=== PATIENT | female | born 1980 | race Caucasian/White ===

== ENCOUNTER 2025-06-04 11:44 | Emergency (ER) | payer OTHER, SELFPAY ==
[2025-06-04 11:53] VITALS: BP 196/98
[2025-06-04 12:12] LABS: Hematocrit 38.4 % (37.0-47.0); Hemoglobin 12.6 g/dL (12.0-16.0); Mean Corp Hgb Conc. 32.8 g/dL (33.0-37.0); Mean Corpuscular Volume 84.0 fL (81.0-99.0); Nucleated Red Blood Cells % 0 %; Platelet Count 215 10^3/uL (130-400); Red Cell Dist. Width 13.4 % (11.5-14.5)
[2025-06-04 12:35] LABS: ALT (SGPT) 41 U/L (0-35); AST (SGOT) 29 U/L (14-36); Albumin 3.9 g/dl (3.5-5.0); Alkaline Phosphatase 57 U/L (38-126); Blood Urea Nitrogen 14 mg/dl (7-17); Calcium 8.8 mg/dl (8.4-10.2); Carbon Dioxide 30 mmol/L (22-30); Chloride 103 mmol/L (98-107); Glucose 106 mg/dl (70-99); Potassium 4.6 mmol/L (3.5-5.1); Sodium 136 mmol/L (135-145); Total Protein 7.0 g/dl (6.3-8.2); eGFR > 60.00
--- NOTE | 2025-06-04 14:56 | ED.GENMED ---
History of Present Illness
General
Chief Complaint: Back Pain
Time Seen by Provider: 06/04/25 14:20
Course
Orders/Labs/Results
Orders:
Orders
06/04/25 11:55
Urinalysis Reflex To Culture Urgent
Date Specimen was Collected: 06/04/25
Time Specimen was Collected: 11:55
06/04/25 12:00
Complete Blood Count/With Diff Urgent
Comprehensive Metabolic Panel Urgent
Abnormal Lab Results
06/04/25
12:00
MCHC 32.8 L g/dL
(33.0-37.0)
MPV 11.0 H fL
(7.4-10.4)
Absolute Neuts (auto) 6.9 H 10^3/uL
(1.4-6.5)
Glucose 106 H mg/dl
(70-99)
ALT 41 H U/L
(0-35)
06/04/25 12:00
06/04/25 12:00
Vital Signs
Initial and Last Documented VS:
Initial Vital Signs
Temp Pulse Resp BP Pulse Ox
98.5 F 98 16 196/98 98
06/04/25 11:53 06/04/25 11:53 06/04/25 11:53 06/04/25 11:53 06/04/25 11:53
Last Documented Vital Signs
Temp Pulse Resp BP Pulse Ox
98.5 F 98 16 196/98 98
06/04/25 11:53 06/04/25 11:53 06/04/25 11:53 06/04/25 11:53 06/04/25 11:53
*Pulse Oximetry
SaO2: 98
Oxygen Mode of Delivery: Room air
ED Attending Note
-
Portions of this chart may have been created with voice recognition software.� Occasional wrong word or��sound alike� substitutions may have occurred due to the inherent limitations of voice recognition software.
Discharge Plan
Departure
Prescriptions:
No Action
albuterol sulfate 2.5 mg /3 mL (0.083 %) solution for nebulization
2.5 mg inhalation QID PRN (Reason: shortness of breath or wheezing) Qty: 75 0RF
Referrals:
Colin Berry, DO [Family Provider]
Interventions
Interventions:
*Risk Screen - Suicide Last Done: 06/04/25 11:53
*General Assessment Last Done: 06/04/25 11:53
*Neglect/Abuse Screening Last Done: 06/04/25 11:53
*ED- Fall Risk Assessment Last Done: 06/04/25 11:53
*ED COVID-19 Vaccine History Last Done: 06/04/25 11:53
ED-Musculoskeletal Assessment Last Done: 06/04/25 13:00
Discharge Date and Time
Print Language: CITIZEN [place]
== END 2025-06-04 16:25 | disposition left against medical advice (07) ==
LOC: EMR 11:44
PROVIDERS: Emergency Medicine; FAMILY PHYSICIAN Family Medicine
DX: M54.50 Low back pain, unspecified (principal); R20.0 Anesthesia of skin
CPT/HCPCS: 80053; 85025